=== PATIENT | female | born 2000 | race African-American/Black ===

== ENCOUNTER 2021-02-18 22:13 | Emergency (ER) | payer MEDICAID ==
[~2021-02-18] VITALS: Ht 160 cm; Wt 58.0 kg
[2021-02-18] MEDS ORDERED: HYDROCODONE/ACETAMINOPHEN 5/325MG TABLET PO STA (22:57)
[2021-02-18 23:14] LABS: BASOPHILS % 0.5 % (0.0-2.0); EOSINOPHILS % 2.5 % (0.0-5.0); HEMATOCRIT. 35.5 % (36.0-48.0); HEMOGLOBIN. 12.3 g/dL (12.0-16.0); LYMPHOCYTES % 44.8 % (20.0-50.0); MEAN CORPUSCULAR HEMOGLOBIN 30.6 pg (28.0-32.0); MEAN CORPUSCULAR VOLUME 88.7 fL (81.0-99.0); NEUTROPHILS % 44.2 % (40.0-76.0); PLATELET 279 x1000/uL (130-400); RED CELL DISTRIBUTION WIDTH 12.7 % (11.6-14.6)
[2021-02-18 23:19] LABS: CHLORIDE 106 mEq/L (98-107)
[2021-02-18 23:34] LABS: CLARITY URINE CLEAR (CLEAR); COLOR URINE YELLOW (YELLOW); KETONES URINE NEGATIVE (NEGATIVE); LEUKOCYTE ESTERASE URINE 1+ (NEGATIVE); NITRITE URINE NEGATIVE (NEGATIVE); OCCULT BLOOD URINE NEGATIVE (NEGATIVE); PH URINE 6.5 (4.5-8.0); PROTEIN URINE NEGATIVE (NEGATIVE); SPECIFIC GRAVITY URINE 1.005 (1.005-1.030); UROBILINOGEN URINE 0.2 E.U./dL (0.2-1.0)
[2021-02-19 03:40] VITALS: BP 103/75
[2021-02-19] MEDS ORDERED: IBUP-2028 MT (04:04)
== END 2021-02-19 04:55 | disposition home or self-care (01) ==
LOC: ER 22:13
DX: K80.50 Calculus of bile duct without cholangitis or cholecystitis without obstruction (principal)
CPT/HCPCS: 36415; 76705; 80053; 81003; 81025; 85025; 99284

== ENCOUNTER 2022-08-12 13:39 | Emergency (ER) | payer MEDICAID ==
[~2022-08-12] VITALS: Ht 167.6 cm; Wt 70.0 kg
[~2022-08-12 13:39] MED LIST: IBUP-2028 MT
[2022-08-12 13:44] VITALS: BP 112/82
[2022-08-12] MEDS ORDERED: ACETAMINOPHEN 500MG TABLET PO ONE (15:15)
[2022-08-12] MEDS ORDERED: IBUP-2029 MT (16:15)
== END 2022-08-12 16:53 | disposition home or self-care (01) ==
LOC: ER 14:38
DX: S09.8XXA Other specified injuries of head, initial encounter (principal); S40.012A Contusion of left shoulder, initial encounter; V00.311A Fall from snowboard, initial encounter; Y93.23 Activity, snow (alpine) (downhill) skiing, snowboarding, sledding, tobogganing and snow tubing; Y92.838 Other recreation area as the place of occurrence of the external cause
CPT/HCPCS: 73030; 81025; 99284; A4565

== ENCOUNTER 2023-07-19 13:54 | Emergency (ER) | payer MEDICAID, OTHER ==
[~2023-07-19] VITALS: Ht 157.5 cm; Wt 50.0 kg
[~2023-07-19 13:54] MED LIST changes: +IBUP-2029 MT
[2023-07-19 14:23] VITALS: BP 109/73; PULSE 90; RESP 16; TEMP 98.4; O2SAT 100
== END 2023-07-19 18:51 | disposition home or self-care (01) ==
LOC: ER 13:54
DX: M25.511 Pain in right shoulder (principal); M25.521 Pain in right elbow; Z90.89 Acquired absence of other organs
CPT/HCPCS: 73030; 73070; 99284